=== PATIENT | male | born 1970 | race African-American/Black ===

== ENCOUNTER 2018-11-02 17:56 | Emergency (ER) | payer SELFPAY ==
--- NOTE | 2018-11-02 18:26 | UC ---
Skin Complaint HPI - HPI Summary HPI Summary: 48-year-old male who got stung on the top of the head by 2 yellow jackets. He was observed to be fine in the waiting room however when he came back to the room he felt dizzy and lightheaded so he laid down. He does not have a known history of allergic reactions to bees. He denies any difficulty breathing. - History of Current Complaint Chief Complaint: UCGeneralIllness Time Seen by Provider: 11/02/18 18:25 Stated Complaint: WASP STING Hx Obtained From: Patient Onset/Duration: Gradual Onset - Gradual onset was after he got stung on the top his head. Skin Exposure Onset/Duration: Minutes Ago - . Patient got stung approximately 30 minutes prior to arrival. Onset Severity: Mild Current Severity: Moderate Pain Intensity: 9 Location: Other - Top of head Character: Pain, Raised Aggravating Factor(s): Nothing Alleviating Factor(s): Nothing Associated Signs & Symptoms: Positive: Lightheadedness - Allergy/Home Medications Allergies/Adverse Reactions: Allergies Allergy/AdvReac Type Severity Reaction Status Date / Time No Known Allergies Allergy Verified 11/02/18 18:23 Home Medications: Home Medications NK [No Home Medications Reported] 11/02/18 [History Confirmed 11/02/18] PMH/Surg Hx/FS Hx/Imm Hx Previously Healthy: Yes - Surgical History Surgical History: Yes Surgery Procedure, Year, and Place: Shoulder repair - Family History Known Family History: Positive: Non-Contributory - Social History Alcohol Use: Daily Substance Use Type: None Smoking Status (MU): Never Smoked Tobacco - Immunization History Most Recent Tetanus Shot: this year Review of Systems All Other Systems Reviewed And Are Negative: Yes Skin: Positive: Other - To bee stings to the top of his head. Motor: Positive: Weakness - Patient states that he feels weak and dizzy. Is Patient Immunocompromised?: No Physical Exam Triage Information Reviewed: Yes Appearance: Well-Appearing, No Pain Distress, Well-Nourished Vital Signs: Initial Vital Signs Temp 97.1 F 11/02/18 18:17 Pulse 65 11/02/18 18:17 Resp 21 11/02/18 18:17 BP 135/73 11/02/18 18:17 Pulse Ox 98 11/02/18 18:17 Vital Signs Reviewed: Yes Eyes: Positive: Conjunctiva Clear ENT: Positive: Hearing grossly normal, Pharynx normal, TMs normal, Uvula midline Neck: Positive: Supple, Nontender, No Lymphadenopathy Respiratory: Positive: Lungs clear, Normal breath sounds, No respiratory distress, No accessory muscle use Cardiovascular: Positive: RRR, No Murmur, Pulses Normal, Brisk Capillary Refill Abdomen Description: Positive: Nontender, No Organomegaly, Soft Bowel Sounds: Positive: Present Musculoskeletal Exam: Normal Neurological Exam: Normal Psychological Exam: Normal Skin: Positive: Other - Patient has 2 small areas of swelling redness and pain to the top of his head where the bees stung him. Course/Dx - Course Course Of Treatment: Patient was given Benadryl 50 mg IM, Solu-Medrol 125 mg IM and Pepcid 40 mg by mouth. He was observed here over one hour and prior to discharge was feeling sleepy but felt much better. At no time was his airway compromised nor did he complain of difficulty breathing. He has 2 friends with him who will take him home and they are with him the rest of the night. He was advised to go to the emergency room if he has any further difficulties breathing - Diagnoses Provider Diagnosis: Bee sting reaction Discharge - Sign-Out/Discharge Documenting (check all that apply): Patient Departure All imaging exams completed and their final reports reviewed: No Studies - Discharge Plan Condition: Fair Disposition: HOME Patient Education Materials: Insect Bite or Sting (ED) Referrals: No Primary Care Phys,NOPCP [Primary Care Provider] - [facility] [Outside] Additional Instructions: Continue Benadryl 25-50 mg every 6 hours over the next 24 hours. Follow-up in the emergency room if you have any feeling of throat closing, wheezing, difficulty breathing, facial swelling. He may apply ice to the bee stings. - Billing Disposition and Condition Condition: FAIR Disposition: Home
[2018-11-02] MEDS ORDERED: diPHENhydraMINE IV* 50 MG/ML 1 ml VIAL (BENADRYL) IM ONE (18:32)
[2018-11-02] MEDS ORDERED: Famotidine TAB* 20 MG PO ONE (18:32)
[2018-11-02] MEDS ORDERED: methylPREDNISolone 125 MG* 2 ML VIAL IM ONE (18:32)
[2018-11-02 19:33] VITALS: BP 166/95
== END 2018-11-02 19:57 | disposition home or self-care (01) ==
LOC: UCEAST 17:56
DX: T63.441A Toxic effect of venom of bees, accidental (unintentional), initial encounter (principal); R42 Dizziness and giddiness; Y92.9 Unspecified place or not applicable
CPT/HCPCS: 96372; 99202; A9270-GY; G0463; J1200; J2930